=== PATIENT | female | born 1985 | race Caucasian/White ===

== ENCOUNTER 2024-08-24 08:40 | Inpatient (IN) | payer MEDICAID ==
[~2024-08-24] VITALS: Ht 157.5 cm; Wt 60.8 kg
[2024-08-24 09:19] LABS: BASOPHILS # (AUTO) 0.1 X10'3 (0-0.2); BASOPHILS % (AUTO) 0.5 % (0-1); EOSINOPHILS % (AUTO) 0 % (0-6); HEMATOCRIT 42.8 % (35.0-45.0); HEMOGLOBIN 14.5 g/dl (12.0-16.0); LYMPHOCYTES # (AUTO) 1.5 X10'3 (1.1-4.8); LYMPHOCYTES % (AUTO) 13.4 % (21-51); MEAN CORPUSCULAR HEMOGLOBIN 30.4 PG (27.0-31.0); MEAN CORPUSCULAR VOLUME 89.3 FL (78-98); MEAN PLATELET VOLUME 6.5 FL (7.4-10.4); MONOCYTES # (AUTO) 0.6 X10'3 (0-0.9); MONOCYTES % (AUTO) 5.5 % (2-12); NEUTROPHILS # (AUTO) 8.8 X10'3 (1.8-7.7); NEUTROPHILS % (AUTO) 80.6 % (42-75); PLATELET COUNT 426 X10'3 (140-440); RED BLOOD COUNT 4.79 X10'6 (4.20-5.60); RED CELL DISTRIBUTION WIDTH 12.8 % (11.5-14.5); WHITE BLOOD COUNT 10.9 X10'3 (4.5-11.0)
[2024-08-24 09:41] LABS: ALBUMIN 4.5 G/DL (3.4-5.0); ANION GAP 9 (8-16); BLOOD UREA NITROGEN 16 MG/DL (7-18); BUN/CREATININE RATIO 20.8 (10.0-20.0); CALCIUM 9.4 MG/DL (8.5-10.1); CHLORIDE 105 MMOL/L (99-107); CREATININE 0.77 MG/DL (0.40-0.90); ETHANOL < 10 MG/DL (<10); GLUCOSE 103 MG/DL (70-104); POTASSIUM 3.3 MMOL/L (3.5-5.1); SODIUM 142 MMOL/L (135-145); THYROID STIMULATING HORMONE 2.97 ulU/ml (0.34-4.50); TOTAL CARBON DIOXIDE 27.7 MMOL/L (24-32); eCRCL 78 ML/MIN; eGFR 84 ML/MIN
[2024-08-24] MEDS ORDERED: NO HOME MEDS (09:50)
[2024-08-24] MEDS: LORazepam 1 MG tablet PO ONE ×2 (10:22→12:17)
[2024-08-24 11:51] LABS: URINE HCG NEGATIVE (NEG)
[2024-08-24 11:54] LABS: BILIRUBIN,URINE NEGATIVE (Neg); CLARITY,URINE CLOUDY (Clear); COLOR,URINE YELLOW (Yellow); GLUCOSE, URINE NEGATIVE (Neg); KETONES,URINE 15 mg/dl (Neg); LEUKOCYTE ESTERASE ,URINE NEGATIVE (Neg); NITRITES, URINE POSITIVE (Neg); OCCULT BLOOD,URINE LARGE (Neg); PH,URINE 5.5 (4.8-8.0); PROTEIN,URINE 100 mg/dl (Neg); UROBILINOGEN,URINE 0.2 E.U/dL (0.2-1.0)
[2024-08-24 11:55] LABS: UA COLLECTION TYPE URINAL
[2024-08-24 12:13] LABS: BACTERIA,URINE 4+ /HPF (Neg); RBC,URINE TNTC /HPF (0-2); SQUAMOUS EPITHELIAL CELL,UR FEW /LPF (FEW)
[2024-08-24 12:14] LABS: HYALINE CASTS 0-3 /LPF (NEGATIVE)
[2024-08-24] MEDS: OLANZapine 5mg rapidly disint. tablet PO SCH (12:17)
[2024-08-24 12:29] LABS: URINE AMPHETAMINE SCREEN POSITIVE (Neg); URINE BARBITUATE SCREEN NEGATIVE (Neg); URINE BENZODIAZEPINES SCREEN NEGATIVE (Neg); URINE CANNABINOID SCREEN POSITIVE (Neg); URINE COCAINE SCREEN NEGATIVE (Neg); URINE METHADONE SCREEN NEGATIVE (Neg); URINE OPIATE SCREEN NEGATIVE (Neg); URINE PHENCYCLIDINE SCREEN NEGATIVE (Neg)
[2024-08-24] MEDS: cephalexin 250mg capsule PO SCH (20:43)
[2024-08-25 14:03] LABS: BILIRUBIN,URINE NEGATIVE (Neg); CLARITY,URINE SLIGHTLY CLOUDY (Clear); COLOR,URINE YELLOW (Yellow); GLUCOSE, URINE NEGATIVE (Neg); KETONES,URINE NEGATIVE (Neg); LEUKOCYTE ESTERASE ,URINE TRACE (Neg); OCCULT BLOOD,URINE SMALL (Neg); PROTEIN,URINE TRACE mg/dl (Neg); UROBILINOGEN,URINE 0.2 E.U/dL (0.2-1.0)
[2024-08-25 14:11] LABS: NITRITES, URINE NEGATIVE (Neg); UA COLLECTION TYPE NON-SPECIFIED
[2024-08-25 14:12] LABS: WBC,URINE 30-50 /HPF (0-4)
[2024-08-25 14:13] LABS: BACTERIA,URINE FEW /HPF (Neg); RENAL CELLS, URINE FEW /HPF; SQUAMOUS EPITHELIAL CELL,UR FEW /LPF (FEW); TRANSITIONAL EPI CELLS,URINE FEW /HPF
[2024-08-25] MEDS: nitrofuran monohydrate/nitrofuran macrocrysal 100 MG (MacroBID) capsule PO ONE ×2 (14:30→15:53)
[2024-08-25 21:38] VITALS: BP 125/74; PULSE 60; RESP 16; TEMP 98.2; O2SAT 100
[2024-08-25] MEDS ORDERED: NICOTINE POLACRILEX 2 MG LOZENGE BC PRN (21:45)
[2024-08-25] MEDS ORDERED: loperamide 2mg capsule PO PRN (21:45)
[2024-08-25] MEDS ORDERED: acetaminophen 325mg tablet PO PRN (21:45)
[2024-08-25] MEDS ORDERED: magnesium hydroxide 30ml (MOM) UD suspension PO PRN (21:45)
[2024-08-25] MEDS ORDERED: mag hydrox/Alum hydrox/simeth 30ml oral suspension PO PRN (21:45)
[2024-08-25 22:17] VITALS: RESP 12; O2SAT 100
[2024-08-26 07:30] VITALS: BP 98/56; PULSE 69; RESP 12; TEMP 97.7; O2SAT 97
[2024-08-26 07:45] VITALS: RESP 12; O2SAT 97
[2024-08-26] MEDS: nicotine 21mg patch - 24 hr TD SCH (08:00)
[2024-08-26] MEDS: nitrofuran monohydrate/nitrofuran macrocrysal 100 MG (MacroBID) capsule PO SCH (08:51)
[2024-08-26 09:14] LABS: CHOL/HDL RATIO 2.6 (0.00-4.99); CHOLESTEROL 165 MG/DL (0-200); HDL CHOLESTEROL 64 MG/DL (35-60); LDL CHOLESTEROL 89 MG/DL (50-100); TRIGLYCERIDES 179 MG/DL (20-135)
[2024-08-26 09:20] LABS: HEMOGLOBIN A1C 4.7 % (4.5-6.2)
[2024-08-26 19:00] VITALS: BP 115/65; PULSE 63; RESP 16; TEMP 98.2; O2SAT 97
[2024-08-26] MEDS: acetaminophen 325mg tablet PO PRN (21:21)
[2024-08-27 07:09] LABS: HBSAG SCREEN Negative (Negative); HEP B CORE AB, IGM Negative (Negative); HEP B CORE AB, TOT Negative (Negative); HEP B SURF AB Non Reactive (.)
[2024-08-27 07:15] VITALS: BP 113/55; PULSE 52; RESP 16; TEMP 98.3; O2SAT 98
[2024-08-27] MEDS: FLUoxetine 20mg capsule PO SCH (08:43)
[2024-08-27 08:46] VITALS: RESP 16; O2SAT 98
[2024-08-27 19:00] VITALS: RESP 16; O2SAT 98
[2024-08-27 20:00] VITALS: BP 112/74; PULSE 76; RESP 16; TEMP 97.8; O2SAT 98
[2024-08-28 07:00] VITALS: BP 104/59; PULSE 61; RESP 16; TEMP 97.9; O2SAT 98
[2024-08-28] MEDS: potassium chloride 10mEq ER tablet PO SCH (10:42)
[2024-08-28] MEDS ORDERED: FLUO-167 PO (12:47)
[2024-08-28] MEDS ORDERED: OLAN5TAB29 PO (12:47)
[2024-08-28] MEDS ORDERED: NITR100C11 PO (12:47)
== END 2024-08-28 13:12 | disposition left against medical advice (07) | DRG 751 ==
LOC: ER 08:40 → UNDOADMIN 08-25 19:00 → ADULT MH 08-25 19:00 → UNDODISIN 08-28 13:12
PROVIDERS: ADMIT Psychiatry & Neurology Psychiatry; ATTEND Psychiatry & Neurology Psychiatry
PROC: GZHZZZZ Group Psychotherapy (ICD-10-PCS; principal; 2024-08-26)
DX: F33.1 Major depressive disorder, recurrent, moderate (principal); E87.6 Hypokalemia; F41.9 Anxiety disorder, unspecified; F15.90 Other stimulant use, unspecified, uncomplicated; Z20.822 Contact with and (suspected) exposure to COVID-19; F17.200 Nicotine dependence, unspecified, uncomplicated; Z53.21 Procedure and treatment not carried out due to patient leaving prior to being seen by health care provider; Z88.0 Allergy status to penicillin; Z59.00 Homelessness unspecified; Z81.8 Family history of other mental and behavioral disorders; Z56.0 Unemployment, unspecified
CPT/HCPCS: 36415; 74176; 80048; 80061; 80305; 80320; 81001; 81025; 83036; 84443; 85025; 86704; 86705; 86706; 87081; 87088; 87340; 87811; 99285; A4353

== ENCOUNTER 2024-09-26 05:58 | Emergency (ER) | payer MEDICAID ==
[~2024-09-26] VITALS: Ht 157.5 cm; Wt 63.6 kg
[~2024-09-26 05:58] MED LIST: FLUO-167 PO; NITR100C11 PO; OLAN5TAB29 PO
[2024-09-26 06:00] VITALS: BP 120/74; PULSE 79; RESP 18; TEMP 98.9; O2SAT 100
[2024-09-26 06:21] LABS: BILIRUBIN,URINE NEGATIVE (Neg); CLARITY,URINE CLEAR (Clear); COLOR,URINE YELLOW (Yellow); GLUCOSE, URINE NEGATIVE (Neg); KETONES,URINE NEGATIVE (Neg); LEUKOCYTE ESTERASE ,URINE NEGATIVE (Neg); NITRITES, URINE POSITIVE (Neg); OCCULT BLOOD,URINE NEGATIVE (Neg); PH,URINE 5.5 (4.8-8.0); PROTEIN,URINE TRACE mg/dl (Neg); URINE HCG NEGATIVE (NEG); UROBILINOGEN,URINE 0.2 E.U/dL (0.2-1.0)
[2024-09-26 06:25] LABS: UA COLLECTION TYPE CLN CATCH MIDSTREAM
[2024-09-26 06:28] LABS: BACTERIA,URINE 4+ /HPF (Neg); MUCUS STRANDS NONE SEEN /LPF (Neg); RBC,URINE NONE SEEN /HPF (0-2); SQUAMOUS EPITHELIAL CELL,UR MODERATE /LPF (FEW)
== END 2024-09-26 09:58 | disposition left against medical advice (07) ==
LOC: ER 05:59
DX: R10.9 Unspecified abdominal pain (principal); R39.89 Other symptoms and signs involving the genitourinary system; Z88.2 Allergy status to sulfonamides; Z53.21 Procedure and treatment not carried out due to patient leaving prior to being seen by health care provider
CPT/HCPCS: 81001; 81025; 87077; 87088; 87186